=== PATIENT | female | born 1990 ===

== ENCOUNTER 2019-12-04 10:29 | Emergency (ER) | payer SELFPAY ==
--- NOTE | 2019-12-04 10:59 | EDM.PDOC ---
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 Patient has minimal pain. Patient has no fever. Patient is unsure if she is or not. patient is not actively bleeding at this time. Patient dates she has been x1 in the past. 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 Duration: Week(s): (2), Intermittent Location: Reports: Pelvis Severity: Mild Improves with: Reports: None Worsens with: Reports: None Associated Symptoms: Reports: No Other Symptoms - Related Data Allergies Allergy/AdvReac Type Severity Reaction Status Date / Time Latex, Natural Rubber Allergy Hives Verified 12/04/19 10:45 Home Meds: Home Meds Albuterol [Proventil Neb Soln] 1 puff INH ASDIRECTED 12/04/19 [History] ED ROS GENERAL - Review of Systems Review Of Systems: See Below Constitutional: Reports: No Symptoms HEENT: Reports: No Symptoms Respiratory: Reports: No Symptoms Cardiovascular: Reports: No Symptoms Endocrine: Reports: No Symptoms GI/Abdominal: Reports: No Symptoms : Reports: No Symptoms Musculoskeletal: Reports: No Symptoms Skin: Reports: No Symptoms Neurological: Reports: No Symptoms Psychiatric: Reports: No Symptoms Hematologic/Lymphatic: Reports: No Symptoms Immunologic: Reports: No Symptoms ED EXAM, GI/ABD - Physical Exam Exam: See Below Exam Limited By: No Limitations General Appearance: Alert, WD/WN, Mild Distress Ears: Normal External Exam, Normal Canal Nose: Normal Inspection Throat/Mouth: Normal Inspection Head: Atraumatic, Normocephalic Neck: Normal Inspection, Supple Respiratory/Chest: No Respiratory Distress, Lungs Clear Cardiovascular: Normal Peripheral Pulses, Regular Rate, Rhythm, No JVD GI/Abdominal Exam: Normal Bowel Sounds, Soft, Non-Tender, No Organomegaly (Female) Exam: Normal External Exam, Adnexal Mass (left), Cervical Discharge (blood), Vaginal Bleeding. No: Cervix Motion Tenderness, Uterine Tenderness, Vaginal Lesions, Vaginal Tears Rectal (Female) Exam: Deferred Back Exam: Normal Inspection Extremities: Normal Inspection Neurological: Alert, Oriented, CN II-XII Intact, Normal Reflexes Psychiatric: Normal Affect, Normal Mood Skin Exam: Warm, Dry, Intact Lymphatic: No Adenopathy Course - Vital Signs Text/Narrative:: 29-year-old female presents to the emergency room chief complaint of vaginal bleeding and cramping. Patient is positive test on urine patient CBC looks normal with normal vitals. On exam patient has a left-sided adnexal pain. Ultrasound shows a left adnexal mass with an empty uterus. Patient quantitative hCG is pending was consulted. He will evaluate the patient. 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 He has evaluated the patient and evaluated the ultrasound and were treating the patient for an ectopic . Medical treatment is the treatment because the hCG quantitative is 109. Patient is receiving methotrexate IV, prior to leaving the ER ,at the appropriate dose. Will be given a prescription for repeat quantitative beta-hCG for 12/05 and is scheduled to see Dr. Jaja Piper in in his clinic on Tuesday He is instructed to follow-up with Dr. Wolf but if patient develops severe pain bleeding nausea or vomiting she is to come to the emergency room Last Recorded V/S: Last Vital Signs Temp 97.5 F 12/04/19 10:43 Pulse 91 12/04/19 12:46 Resp 18 12/04/19 12:46 BP 117/72 12/04/19 12:46 Pulse Ox 98 12/04/19 12:46 - Orders/Labs/Meds Labs: Laboratory Tests 12/04/19 12/04/19 12/04/19 Range/Units 10:46 11:42 11:42 WBC 6.98 (4.0-11.0) K/uL RBC 4.13 L (4.30-5.90) M/uL Hgb 12.9 (12.0-16.0) g/dL Hct 39.0 (36.0-46.0) % MCV 94.4 (80.0-98.0) fL MCH 31.2 (27.0-32.0) pg MCHC 33.1 (31.0-37.0) g/dL RDW Std Deviation 42.4 (28.0-62.0) fl RDW Coeff of Jesús 12 (11.0-15.0) % Plt Count 352 (150-400) K/uL MPV 8.90 (7.40-12.00) fL Neut % (Auto) 67.2 (48.0-80.0) % Lymph % (Auto) 23.1 (16.0-40.0) % Cloud % (Auto) 8.3 (0.0-15.0) % Eos % (Auto) 1.1 (0.0-7.0) % Baso % (Auto) 0.3 (0.0-1.5) % Neut # (Auto) 4.7 (1.4-5.7) K/uL Lymph # (Auto) 1.6 (0.6-2.4) K/uL Cloud # (Auto) 0.6 (0.0-0.8) K/uL Eos # (Auto) 0.1 (0.0-0.7) K/uL Baso # (Auto) 0.0 (0.0-0.1) K/uL Nucleated RBC % 0.0 /100WBC Nucleated RBCs # 0 K/uL Sodium 138 (136-145) mmol/L Potassium 4.2 (3.5-5.1) mmol/L Chloride 103 (98-107) mmol/L Carbon Dioxide 25.2 (21.0-32.0) mmol/L BUN 12 (7.0-18.0) mg/dL Creatinine 0.7 (0.6-1.0) mg/dL Est Cr Clr Drug Dosing 90.29 mL/min Estimated GFR (MDRD) > 60.0 ml/min Glucose 98 (74-106) mg/dL Calcium 8.9 (8.5-10.1) mg/dL Total Bilirubin 0.3 (0.2-1.0) mg/dL AST 19 (15-37) IU/L ALT 30 (14-63) IU/L Alkaline Phosphatase 83 (46-116) U/L Total Protein 7.0 (6.4-8.2) g/dL Albumin 3.9 (3.4-5.0) g/dL Globulin 3.1 (2.6-4.0) g/dL Albumin/Globulin Ratio 1.3 (0.9-1.6) HCG, Qual (NEG) HCG, Quant mIU/mL Urine HCG, Qual POSITIVE (NEGATIVE) Blood Type 12/04/19 12/04/19 12/04/19 Range/Units 11:42 11:42 11:42 WBC (4.0-11.0) K/uL RBC (4.30-5.90) M/uL Hgb (12.0-16.0) g/dL Hct (36.0-46.0) % MCV (80.0-98.0) fL MCH (27.0-32.0) pg MCHC (31.0-37.0) g/dL RDW Std Deviation (28.0-62.0) fl RDW Coeff of Jesús (11.0-15.0) % Plt Count (150-400) K/uL MPV (7.40-12.00) fL Neut % (Auto) (48.0-80.0) % Lymph % (Auto) (16.0-40.0) % Cloud % (Auto) (0.0-15.0) % Eos % (Auto) (0.0-7.0) % Baso % (Auto) (0.0-1.5) % Neut # (Auto) (1.4-5.7) K/uL Lymph # (Auto) (0.6-2.4) K/uL Cloud # (Auto) (0.0-0.8) K/uL Eos # (Auto) (0.0-0.7) K/uL Baso # (Auto) (0.0-0.1) K/uL Nucleated RBC % /100WBC Nucleated RBCs # K/uL Sodium (136-145) mmol/L Potassium (3.5-5.1) mmol/L Chloride (98-107) mmol/L Carbon Dioxide (21.0-32.0) mmol/L BUN (7.0-18.0) mg/dL Creatinine (0.6-1.0) mg/dL Est Cr Clr Drug Dosing mL/min Estimated GFR (MDRD) ml/min Glucose (74-106) mg/dL Calcium (8.5-10.1) mg/dL Total Bilirubin (0.2-1.0) mg/dL AST (15-37) IU/L ALT (14-63) IU/L Alkaline Phosphatase (46-116) U/L Total Protein (6.4-8.2) g/dL Albumin (3.4-5.0) g/dL Globulin (2.6-4.0) g/dL Albumin/Globulin Ratio (0.9-1.6) HCG, Qual POSITIVE H (NEG) HCG, Quant 109.0 mIU/mL Urine HCG, Qual (NEGATIVE) Blood Type O POSITIVE Meds: Medications Discontinued Medications Generic Name Dose Route Start Last Admin Trade Name Freq PRN Reason Stop Dose Admin Methotrexate Sodium 90 mg 12/04/19 14:32 12/04/19 14:47 Methotrexate Pf IM 12/04/19 14:33 90 mg NOW STA Administration Departure - Departure Time of Disposition: 14:57 Disposition: Home, Self-Care 01 Condition: Good Clinical Impression: Ectopic , tubal - Discharge Information Instructions: Methotrexate Treatment for an Ectopic Referrals: Jonnathan Wolf MD [Physician] - PCP,None [Primary Care Provider] - Forms: ED Department Discharge Additional Instructions: Patient is to follow-up with 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 Patient is to get a repeat quantitative beta-hCG 12/05 in the laboratory The patient is to return for any problems Sepsis Event Note - Evaluation Sepsis Screening Result: No Definite Risk - Focused Exam Vital Signs: Vital Signs Temp Pulse Resp BP Pulse Ox 12/04/19 12:46 91 18 117/72 98 12/04/19 10:43 97.5 F 90 18 118/64 98 Date Exam was Performed: 12/04/19 Time Exam was Performed: 14:55
[2019-12-04 12:17] LABS: BLOOD UREA NITROGEN,BUN 12 mg/dL (7.0-18.0); CARBON DIOXIDE,CO2 25.2 mmol/L (21.0-32.0); CHLORIDE,CL 103 mmol/L (98-107); GLUCOSE RANDOM 98 mg/dL (74-106); POTASSIUM,K 4.2 mmol/L (3.5-5.1); SODIUM,NA 138 mmol/L (136-145)
--- NOTE | 2019-12-04 12:32 | US ---
1st trimester obstetrical ultrasound: Multiple real-time images were obtained transvaginally. Comparison: No previous study. No intrauterine gestational sac is seen. Endometrial thickness measures 6 mm. No myometrial abnormality is seen. Small amount of free fluid is noted. Complex left-sided adnexal mass is noted measuring 2.7 cm. Findings are suspicious for ectopic if patient has positive test. Ovaries are otherwise unremarkable. Impression: 1. No intrauterine gestational sac. 2. Left adnexal mass suspicious for ectopic if patient has positive test. 3. Small amount of free fluid is noted. Diagnostic code #5 This report was dictated in MDT
[2019-12-04] MEDS ORDERED: Methotrexate PF 50 MG/2 ML SDV IM STA (14:32)
--- NOTE | 2019-12-05 09:08 | CONS ---
DATE OF CONSULTATION: 12/04/2019 DATE OF : 1990 PRIMARY CARE PHYSICIAN: None PCP Ms. Galvan is a 29-year-old patient, nulliparous. She recently moved to our area from [place], here in the ER complaining of regular and painful vaginal bleeding for the last 2 weeks. Her last period was October 19 and it was normal. The patient is not on any control method, and she has regular sexual intercourse. Today, her test was positive where her quantitative level is 109, and her pelvic ultrasound shows empty uterus with a left adnexal mass. Some free fluid, possibility of tubal . I went to evaluate the patient. Her vital signs essentially were normal. The patient stated her bleeding is moderate, and she is not having any pain. Her abdominal examination essentially is benign according to the ER examination. Her pelvic examination, according to the ER evaluation, there is minimum vaginal bleeding. I discussed the findings with the patient and told her the possibility of miscarriage versus an early tubal , and since her quantitative level is 109, there is a room for medical treatment, and I discussed that option with her, which is methotrexate 50 mg/sq m IM or IV and to give to the patient today and then to have a quantitative level HCG repeated in 48 hours and to have a followup appointment in the office. The other option of doing surgical treatment, and I strongly at this time felt that surgical option really is not indicated since the patient's vital signs and hematocrit and abdominal examination are completely benign. The patient is to consider the option of methotrexate and let us know, and we will follow her in the office next Tuesday. EMBER / TE /[id number]
== END 2019-12-04 15:10 | disposition home or self-care (01) ==
LOC: MW.ED 10:29
DX: O00.109 Unspecified tubal pregnancy without intrauterine pregnancy (principal); Z91.040 Latex allergy status
CPT/HCPCS: 36415; 76817; 80053; 81025; 84702; 84703; 85025; 86900; 86901; 96372; 99284; J9260; 99283